=== PATIENT | female | born 1960 | race Native Hawaiian/Other Pacific Islander ===

== ENCOUNTER 2018-02-13 11:13 | Emergency (ER) | payer MEDICAID ==
[~2018-02-13] VITALS: Ht 162.6 cm; Wt 81.6 kg
[~2018-02-13 11:13] MED LIST: NORPTMEDS CO
[2018-02-13 11:33] VITALS: BP 132/66
== END 2018-02-13 13:09 | disposition home or self-care (01) ==
LOC: ER 11:13
DX: G51.0 Bell's palsy (principal); J45.909 Unspecified asthma, uncomplicated; E11.9 Type 2 diabetes mellitus without complications; I10 Essential (primary) hypertension; M19.90 Unspecified osteoarthritis, unspecified site
CPT/HCPCS: 70450; 93005

== ENCOUNTER 2018-03-28 07:37 | Emergency (ER) | payer MEDICAID ==
[2018-03-28] MEDS ORDERED: cefTRIAXone SOD 1,000 MG VL IM ONE (09:30)
[2018-03-28] MEDS ORDERED: LIDOCAINE 1%HCL (LOCAL ANESTH) 10 ML MDV ONE (10:00)
== END 2018-03-28 10:16 | disposition home or self-care (01) ==
LOC: ER 07:37
DX: K04.4 Acute apical periodontitis of pulpal origin (principal); M19.90 Unspecified osteoarthritis, unspecified site; J45.909 Unspecified asthma, uncomplicated; E11.9 Type 2 diabetes mellitus without complications; I10 Essential (primary) hypertension
CPT/HCPCS: 70486; 96372; 99284; J0696; J2001

== ENCOUNTER 2019-07-23 12:41 | Emergency (ER) | payer MEDICAID ==
[~2019-07-23] VITALS: Ht 162.6 cm; Wt 83.9 kg
[2019-07-23] MEDS ORDERED: ACETAMINOPHEN 325 MG TAB PO ONE (13:15)
[2019-07-23 16:47] VITALS: BP 187/88
[2019-07-23] MEDS ORDERED: diphenhdrAMINE HCL 25 MG CAP PO ONE (17:00)
[2019-07-23] MEDS ORDERED: IBUPROFEN 600 MG TAB PO ONE (17:00)
== END 2019-07-23 17:02 | disposition home or self-care (01) ==
LOC: ER 12:41
DX: B02.9 Zoster without complications (principal); M19.90 Unspecified osteoarthritis, unspecified site; J45.909 Unspecified asthma, uncomplicated; E11.9 Type 2 diabetes mellitus without complications; I10 Essential (primary) hypertension